=== PATIENT | male | born 1955 | race Two or more races ===

== ENCOUNTER 2024-11-14 19:41 | Inpatient (IN) | payer OTHER ==
[~2024-11-14] VITALS: Ht 177.8 cm; Wt 66.9 kg
[2024-11-14] MEDS ORDERED: SODIUM CHLORIDE 0.9% 100 ML ONE (20:27)
[2024-11-14] MEDS ORDERED: IOHEXOL 350 MG/ML 100 ML VIAL ONE (20:27)
[2024-11-14] MEDS ORDERED: 0.9% SODIUM CHLORIDE 10 ML SYRINGE IVP ONE (20:27)
[2024-11-14] MEDS: IOHEXOL 9 MG/ML 500 ML BOTTLE PO ONE (20:31)
[2024-11-14 20:41] LABS: PLATELET COUNT (AUTO) 281 K/uL (150-450); RED BLOOD CELL COUNT(AUTO) 3.48 MIL/uL (4.50-5.90); RED CELL DISTRIBUTION WIDTH 14.7 % (11.5-14.5); WHITE BLOOD COUNT (AUTO) 9.6 K/uL (4.5-11.0)
[2024-11-14 20:51] LABS: CALCIUM, TOTAL 9.1 mg/dL (8.8-10.5); CREATININE 1.17 mg/dL (0.60-1.30); GLOMERULAR FILTR. RATE CALC > 60 mL/min (>60); GLUCOSE,RANDOM 106 mg/dL (70-110); SODIUM SERUM 132 mmol/L (136-145); UREA NITROGEN, BLOOD 18 mg/dL (7-18)
[2024-11-14 20:52] LABS: APPEARANCE,URINE HAZY (CLEAR); GLUCOSE, URINE (UA) NEGATIVE (NEGATIVE); LEUKOCYTE ESTERASE ,URINE NEGATIVE (NEGATIVE); NITRATE,URINE NEGATIVE (NEGATIVE); OCCULT BLOOD,URINE NEGATIVE (NEGATIVE); SPECIFIC GRAVITIY, URINE 1.015 (1.003-1.030)
[2024-11-14] MEDS: KETOROLAC TROMETHAMINE 30 MG/ML VIAL IVP ONE (21:03)
[2024-11-15] MEDS: SODIUM CHLORIDE 0.9% 1,000 ML IV ONE ×2 (03:08→09:35)
[2024-11-15 05:00] VITALS: BP 131/92; PULSE 77; RESP 18; TEMP 98.4; O2SAT 99
[2024-11-15 07:29] VITALS: BP 138/96; PULSE 72; RESP 20; TEMP 97.7; O2SAT 98
[2024-11-15] MEDS ORDERED: MIDAZOLAM HCL 2 MG/2 ML VIAL IVP ONE (07:30)
[2024-11-15] MEDS ORDERED: FentaNYL CITRATE PF 100 MCG/2 ML VIAL IM ONE (07:30)
[2024-11-15] MEDS ORDERED: DEXAMETHASONE SOD PHOS 4 MG/ML VIAL IVP ONE (07:35)
[2024-11-15] MEDS ORDERED: ONDANSETRON HCL 4 MG/2 ML VIAL IVP ONE (07:35)
[2024-11-15] MEDS ORDERED: GLYCOPYRROLATE 0.2 MG/ML VIAL IM ONE (07:35)
[2024-11-15] MEDS ORDERED: LIDOCAINE/PF 2% 5 ML VIAL IM ONE (07:35)
[2024-11-15] MEDS ORDERED: 0.9% SODIUM CHLORIDE 10 ML VIAL IRRIG ONE (07:35)
[2024-11-15] MEDS ORDERED: EPHEDrine SULFATE 50 MG/ML VIAL IM ONE (07:35)
[2024-11-15] MEDS ORDERED: ROCURONIUM BROMIDE 10 MG/ML 5 ML VIAL IV ONE (07:35)
[2024-11-15] MEDS ORDERED: SUGAMMADEX SODIUM 200 MG/2 ML VIAL IVP ONE (07:35)
[2024-11-15] MEDS ORDERED: PROPOFOL 1% ISO-OSM 1000 MG/100 ML BOTTLE IV ONE (07:35)
[2024-11-15] MEDS ORDERED: BISACODYL 10 MG RECTAL RECTAL SUPPOSITORY PR PRN (09:45)
[2024-11-15] MEDS ORDERED: MORPHINE SULFATE 2 MG/ML SYRINGE IVP PRN (09:45)
[2024-11-15] MEDS ORDERED: MAGNESIUM HYDROXIDE SUSPENSION 30 ML UDCUP PO PRN (09:45)
[2024-11-15] MEDS ORDERED: ONDANSETRON HCL 4 MG/2 ML VIAL IVP PRN (09:45)
[2024-11-15] MEDS ORDERED: ACETAMINOPHEN 325 MG TABLET PO PRN (09:45)
[2024-11-15] MEDS ORDERED: ZOLPIDEM TARTRATE 5 MG TABLET PO PRN (09:45)
[2024-11-15] MEDS: RINGERS SOLUTION,LACTATED 1,000 ML IV ONE (10:21)
[2024-11-15] MEDS: CHLORHEXIDINE GLUCONATE 2% TOWELETTE [2'S/6'S] TP ONE (10:46)
[2024-11-15] MEDS: ETHYL ALCOHOL 62% ANTISEPTIC NASAL SANITIZER 0.6 ML AMPUL NASAL ONE (10:47)
[2024-11-15] MEDS ORDERED: RINGERS SOLUTION,LACTATED 1,000 ML IV ONE (11:09)
[2024-11-15] MEDS ORDERED: BACITRACIN 28 GM OINTMENT TP ONE (11:51)
[2024-11-15] MEDS ORDERED: FentaNYL CITRATE PF 100 MCG/2 ML VIAL IVP PRN (12:30)
[2024-11-15] MEDS ORDERED: MEPERIDINE-PF 25 MG/ML VIAL IVP PRN (12:30)
[2024-11-15] MEDS: BUPIVACAINE 0.25%/EPI 1:200,000/PF 30 ML VIAL ONE (13:38)
[2024-11-15 16:24] VITALS: BP 114/59; PULSE 70; RESP 14; TEMP 97.7; O2SAT 99
[2024-11-15] MEDS: HEPARIN SODIUM,PORCINE 5,000 UNITS/ML VIAL SQ SCH (16:52)
[2024-11-15] MEDS ORDERED: PEG 400/HYPROMELLOSE/GLYCERIN 15 ML OPHTHALMIC SOLUTION OU PRN (18:00)
[2024-11-15 20:04] VITALS: BP 114/68; PULSE 78; RESP 18; TEMP 97.8; O2SAT 97
[2024-11-15] MEDS: IPRATROPIUM BROMIDE HFA 17 MCG/PUFF 12.9 GM INHALER IH SCH (20:46)
[2024-11-15] MEDS: MONTELUKAST SODIUM 10 MG TABLET PO SCH (20:46)
[2024-11-15] MEDS: DOCUSATE SODIUM 100 MG CAPSULE PO SCH (20:47)
[2024-11-15] MEDS: LEVALBUTEROL TARTRATE HFA 45 MCG/PUFF 15 GM INHALER IH SCH (20:47)
[2024-11-16] MEDS ORDERED: ARIP10TA38 PO (02:20)
[2024-11-16] MEDS ORDERED: ATOR20TA PO (02:25)
[2024-11-16] MEDS ORDERED: DIVA-153 PO (02:26)
[2024-11-16] MEDS ORDERED: LISI-893 PO (02:30)
[2024-11-16] MEDS ORDERED: MONT-35 PO (02:33)
[2024-11-16] MEDS ORDERED: TRAZ-252 PO (02:35)
[2024-11-16] MEDS ORDERED: IPRAHFA IH (02:48)
[2024-11-16] MEDS ORDERED: LEVA15HF3 IH (02:58)
[2024-11-16] MEDS ORDERED: DEXT1DRO OU (03:09)
[2024-11-16] MEDS ORDERED: PEG15DRO14 OU (03:31)
[2024-11-16 04:07] LABS: HEPATITIS C AB (EIA) Non Reactive (Non Reactive)
[2024-11-16 05:00] VITALS: BP 126/82; PULSE 67; RESP 19; TEMP 98; O2SAT 97
[2024-11-16] MEDS: DIVALPROEX SODIUM 500 MG ER TABLET PO SCH (08:39)
[2024-11-16] MEDS: PANTOPRAZOLE SODIUM 40 MG DR TABLET PO SCH (08:40)
[2024-11-16 09:00] VITALS: BP 119/88; PULSE 80; RESP 16; TEMP 97.9; O2SAT 99
[2024-11-16] MEDS: HYDROCODONE/ACETAMINOPHEN 5-325 MG TABLET PO PRN (09:35)
[2024-11-16 12:21] LABS: PLATELET COUNT (AUTO) 243 K/uL (150-450); RED BLOOD CELL COUNT(AUTO) 3.22 MIL/uL (4.50-5.90); RED CELL DISTRIBUTION WIDTH 14.6 % (11.5-14.5); WHITE BLOOD COUNT (AUTO) 8.0 K/uL (4.5-11.0)
[2024-11-16 12:30] LABS: CALCIUM, TOTAL 8.4 mg/dL (8.8-10.5); CREATININE 0.98 mg/dL (0.60-1.30); GLOMERULAR FILTR. RATE CALC > 60 mL/min (>60); GLUCOSE,RANDOM 112 mg/dL (70-110); SODIUM SERUM 137 mmol/L (136-145)
[2024-11-16 13:02] LABS: UREA NITROGEN, BLOOD 11 mg/dL (7-18)
[2024-11-16] MEDS: ATORVASTATIN CALCIUM 20 MG TABLET PO SCH (19:00)
[2024-11-17 04:00] VITALS: BP 127/75; PULSE 60; RESP 18; TEMP 97.5; O2SAT 98
[2024-11-17 05:02] VITALS: BP 120/77; PULSE 60; RESP 18; TEMP 97.9; O2SAT 98
[2024-11-17 07:17] LABS: PLATELET COUNT (AUTO) 219 K/uL (150-450); RED BLOOD CELL COUNT(AUTO) 3.03 MIL/uL (4.50-5.90); RED CELL DISTRIBUTION WIDTH 14.7 % (11.5-14.5); WHITE BLOOD COUNT (AUTO) 5.6 K/uL (4.5-11.0)
[2024-11-17 07:24] LABS: CALCIUM, TOTAL 8.0 mg/dL (8.8-10.5); CREATININE 0.99 mg/dL (0.60-1.30); GLOMERULAR FILTR. RATE CALC > 60 mL/min (>60); GLUCOSE,RANDOM 85 mg/dL (70-110); SODIUM SERUM 137 mmol/L (136-145); UREA NITROGEN, BLOOD 13 mg/dL (7-18)
[2024-11-17] MEDS: OXYGEN THERAPY IH SCH (08:00)
[2024-11-17 08:36] VITALS: BP 129/85; PULSE 65; RESP 18; TEMP 98.1; O2SAT 99
[2024-11-17] MEDS ORDERED: PANT-31 PO (11:48)
[2024-11-17] MEDS ORDERED: DOCU-385 PO (11:48)
[2024-11-17] MEDS ORDERED: ACET-2247 PO (11:49)
[2024-11-17 16:00] VITALS: BP 129/88; PULSE 70; RESP 18; TEMP 98.8; O2SAT 97
== END 2024-11-17 16:20 | DRG 351 ==
LOC: EMS 19:41 → EDH 11-15 03:29 → 6S 11-15 04:31
PROVIDERS: ADMIT Internal Medicine; ATTEND Internal Medicine
PROC: 0YU50JZ Supplement Right Inguinal Region with Synthetic Substitute, Open Approach (ICD-10-PCS; principal; 2024-11-15 13:21)
DX: K40.30 Unilateral inguinal hernia, with obstruction, without gangrene, not specified as recurrent (principal); E87.1 Hypo-osmolality and hyponatremia; J44.9 Chronic obstructive pulmonary disease, unspecified; I10 Essential (primary) hypertension; D64.9 Anemia, unspecified; Z79.899 Other long term (current) drug therapy; Z85.46 Personal history of malignant neoplasm of prostate; Z88.0 Allergy status to penicillin
CPT/HCPCS: 71045; 74018; 74177; 80048; 81003; 85025; 86803; 87081; 87340; 93005; 96374; 97161; 97530; 99285; G0238; J0690; J1100; J1630; J1644; J1885; J2250; J2405; J2704; J3010; J3490; J3535; J7030; J7050; J7120; 36415-L1; 36415-TC; Z7610